=== PATIENT | female | born 2000 | race Caucasian/White ===

== ENCOUNTER 2020-10-06 21:26 | Emergency (ER) | payer OTHER ==
[~2020-10-06 21:26] MED LIST: LORA-53 PO
--- NOTE | 2020-10-06 21:40 | ED Integumentary General ---
General Chief Complaint: Skin/Wound Problems Stated Complaint: WC,RT THUMB LAC History of Present Illness Date Seen by Provider: Oct 06, 2020 Time Seen by Provider: 21:39 Initial Comments 20 y/o female presents w an accidental cut to her left thumb which occurred at work tonight. No other injury or complaint Allergies and Home Medications Allergies Coded Allergies: erythromycin base (Unverified Allergy, Mild, 11/23/08) Sulfa (Sulfonamide Antibiotics) (Verified Allergy, Unknown, 10/06/20) Home Medications Loratadine 10 Mg Tab.rapdis, 10 MG PO DAILY, (Reported) Patient Home Medication List Home Medication List Reviewed: Yes Review of Systems Review of Systems Constitutional: No dizziness, No fever, No malaise, No weakness Musculoskeletal: No joint pain, No muscle pain Skin: see HPI, other (cut to left thumb ) Psychiatric/Neurological: Denies Numbness, Denies Paresthesia, Denies Weakness Past Jyglhho-Vuumvd-Estkiy Hx Past Med/Social Hx: Reviewed Nursing Past Med/Soc Hx Seasonal Allergies Seasonal Allergies: No Physical Exam Vital Signs Vital Signs - First Documented 10/06/20 21:30 Temp 36.5 Pulse 92 Resp 18 B/P (MAP) 142/87 (105) Pulse Ox 98 O2 Delivery Room Air Capillary Refill : General Appearance: WD/WN, no apparent distress Neurologic/Psychiatric: alert, normal mood/affect, oriented x 3 Skin: normal color, warm/dry, other (tiny skin avulsion distal left thumb, superficial and 2mm diameter. no bleeding) Progress/Results/Core Measures Results/Orders My Orders Orders - FERNANDOSTRAIMUNDO AGUIRRE DO Tetanus/Diphtheria Inj (Adult) (Tenivac (10/06/20 21:45) Vital Signs/I&O 10/06/20 21:30 Temp 36.5 Pulse 92 Resp 18 B/P (MAP) 142/87 (105) Pulse Ox 98 O2 Delivery Room Air Departure Impression Primary Impression: Avulsion of skin of finger Qualified Codes: S61.209A - Unspecified open wound of unspecified finger without damage to nail, initial encounter Disposition: HOME, SELF-CARE Condition: Stable Departure-Patient Inst. Decision time for Depature: 21:39 Referrals: JANINA GODOY MD (PCP/Family) Primary Care Physician Patient Instructions: Wound Care ED Add. Discharge Instructions: no follow up necessary unless concerns of infection: increased redness, swelling, pain or wound discharge. All discharge instructions reviewed with patient and/or family. Voiced understanding. RAIMUNDO HERRON DO Oct 06, 2020 21:40
[2020-10-06] MEDS ORDERED: TETANUS & DIPHTHERIA TOX,ADULT 0.5 ML (TENIVAC) IM ONE (21:45)
[2020-10-06 21:53] VITALS: BP 142/87
== END 2020-10-06 21:53 | disposition home or self-care (01) ==
LOC: EDUNIT# 21:26 → ER FS 21:28
DX: S61.102A Unspecified open wound of left thumb with damage to nail, initial encounter (principal); Z88.2 Allergy status to sulfonamides; Z88.1 Allergy status to other antibiotic agents; Z23 Encounter for immunization; W26.8XXA Contact with other sharp object(s), not elsewhere classified, initial encounter
CPT/HCPCS: 90714; 99284